=== PATIENT | female | born 1950 | race Caucasian/White ===

== ENCOUNTER → 2018-05-08 | Outpatient (CLI) | payer MEDICARE ==
[~2018-05-08] MED LIST: CHOL10002; Calan40 MG; HYDR1TAB94 PO; LEVE500 PO; MULVITMIND PO; PHENY100ER PO; RANI150 PO
== END | disposition home or self-care (01) ==
LOC: PLD 07:39 → LAB SHORT 07:39
DX: L57.8 Other skin changes due to chronic exposure to nonionizing radiation (principal)
CPT/HCPCS: 88305